=== PATIENT | female | born 1995 | race Caucasian/White ===

== ENCOUNTER → 2024-04-14 15:20 | Outpatient (BNVA) | payer OTHER, SELFPAY | PROVIDERS: Family Provider Obstetrics & Gynecology; PCP Nurse Practitioner; Visit Provider Nurse Practitioner | DX: E55.9 Vitamin D deficiency, unspecified (principal); R53.83 Other fatigue | CPT/HCPCS: 80053; 82306; 82607; 84443; 85025 ==

== ENCOUNTER → 2025-05-04 16:01 | Outpatient (BNVA) | payer OTHER, SELFPAY | PROVIDERS: Family Provider Obstetrics & Gynecology; PCP Nurse Practitioner; Visit Provider Nurse Practitioner | DX: F41.8 Other specified anxiety disorders (principal) | CPT/HCPCS: 80053; 84443; 85025 ==